=== PATIENT | female | born 1930 | race Caucasian/White ===

== ENCOUNTER → 2016-08-29 | Outpatient (CLI) | payer MEDICARE, MEDICAID ==
[~2016-08-29] MED LIST: ASPIRIN EC81 MG PO; BROMFENAC SODI2.5 ML OD; COLACE-DPS100 MG PO; COSOPT PLUS DPS10 ML OD; FENOFIBRATE145 MG PO; GLUCOPHAGE-DPS500 MG PO; GLUTOSE 1537.5 GM PO; LOPRESSOR DPS50 MG PO; MIRALAX17 GM PO; NAPROSYN DPS500 MG PO; NITROSTAT0.4 MG SL; NORCO 5-325 TA1 EACH PO; PRADAXA75 MG PO; PRESERVISION A1 EACH PO; SYNTHROID DP0.025 MG PO; TYLENOL DP650 MG/20. PO; TYLENOL DPS325 MG PO; TYLENOL-DPS650 MG PR; ULTRAM DPS50 MG PO; ZOCOR DPS10 MG PO
== END | disposition home or self-care (01) ==
DX: M54.5 Low back pain (principal); R10.2 Pelvic and perineal pain; M51.37 Other intervertebral disc degeneration, lumbosacral region; M41.9 Scoliosis, unspecified